=== PATIENT | male | born 1980 | race Caucasian/White ===

== ENCOUNTER 2022-08-17 20:50 | Emergency (ER) | payer SELFPAY ==
[2022-08-17 21:10] VITALS: BP 113/70; PULSE 86; RESP 16; TEMP 36.7; O2SAT 99; BMI 30.2
--- NOTE | 2022-08-18 00:37 | ED_ITS ---
HPI - General Adult General Chief complaint: Back Pain/Injury Stated complaint: leg spasms and pain Time Seen by Provider: 08/18/22 00:35 Source: patient Mode of arrival: ambulatory Limitations: no limitations History of Present Illness HPI narrative: Patient complaining of left sided back pain for last 2 weeks no known direct trauma been lifting and putting the stuff at work. History of kidney stone but no procedure done in the past PE no urinary complaints no fever no chills Related Data Previous Rx's Medication Instructions Recorded cefuroxime axetil 250 mg tablet 250 mg PO BID 7 days #14 tabs 08/18/22 ibuprofen 600 mg tablet 600 mg PO Q6H PRN fever or pain 08/18/22 #30 tabs Allergies Allergy/AdvReac Type Severity Reaction Status Date / Time No Known Allergies Allergy Verified 08/17/22 21:17 Review of Systems Review of Systems: Yes all other systems are reviewed and are negative [facility] Social History Social History Advance Directives: No Physical Exam ED Vital Signs: Vital Signs - 24 hr 08/17/22 21:10 08/18/22 01:14 08/18/22 02:00 Temperature 98.1 F 97.6 F 97.5 F Pulse Rate 86 65 69 Respiratory Rate 16 16 18 Blood Pressure 113/70 111/61 121/73 Pulse Oximetry 99 97 97 Oxygen Delivery Method Room Air Room Air Room Air BMI result Body Mass Index 30.2 Appearance: Alert. Oriented X3. No acute distress. ENT: Pharynx normal. Oral Mucosa moist Neck: Normal inspection. Neck supple. CVS: Normal heart rate and rhythm. Pulses normal. Respiratory: No respiratory distress. Equal air entry bilateral, no wheezing/rales/rhonchi Abdomen: Soft and nontender. Bowel sounds are present, no mass palpable,no CVA tenderness Back: Diffuse pain left flank and left paraspinal area no midline tenderness Skin: Skin warm and dry. Normal skin color. Normal skin turgor. Extremities: No lower extremity edema. No calf tenderness Neuro: Oriented X 3. No motor deficit. Medications Administered Discontinued Medications Generic Name Dose Route Start Last Admin Trade Name Freq PRN Reason Stop Dose Admin Cefuroxime Axetil 250 mg 08/18/22 01:54 08/18/22 02:06 Cefuroxime Axetil 250 Mg Tablet PO 08/18/22 01:55 250 mg ONCE ONE Administration Tramadol HCl 50 mg 08/18/22 01:03 08/18/22 01:09 Tramadol Hcl 50 Mg Tablet PO 08/18/22 01:04 50 mg ONCE ONE Administration Medical Decision Making MDM Narrative Medical decision making narrative: Patient clinically with musculoskeletal pain patient denied any urine complaints but urine showed 10-12 wbc's will give Ceftin and tramadol for pain Lab Data Lab results reviewed: Yes I reviewed the patient's lab results. Labs: Lab Results 08/18/22 Range/Units 01:10 Urine Color Yellow Urine Appearance Clear Urine pH 6.0 (5.0-9.0) Ur Specific [place] >= 1.030 H (1.005-1.025) Urine Protein Trace (Neg-Trace) mg/dL Urine Glucose (UA) Negative (Negative) mg/dL Urine Ketones Trace (Negative) mg/dL Urine Blood Negative (Negative) Urine Nitrite Negative (Negative) Ur Leukocyte Esterase Small (1+) H (Negative) Urine RBC 0-2 (0-2) /HPF Urine WBC 11-20 H (0-5) /HPF Ur Squamous Epith Cells 0-2 (0-2) /HPF Urine Bacteria None Seen (None Seen) Hyaline Casts 0-2 (0-2) /LPF Discharge Plan Discharge Clinical Impression: Strain of lumbar region, UTI (urinary tract infection) Patient Disposition: Home, Self-Care Instructions: Urinary Tract Infection in Men (ED), Back Pain (ED) Prescriptions: New cefuroxime axetil 250 mg tablet 250 mg PO BID 7 Days Qty: 14 0RF ibuprofen 600 mg tablet 600 mg PO Q6H PRN (Reason: fever or pain) Qty: 30 0RF Interventions: ED Discharge Assessment Last Done: 08/18/22 02:25 Discharge Date/Time: 08/18/22 02:26
[2022-08-18] MEDS: traMADoL HCL 50 MG TABLET PO (01:09)
[2022-08-18 01:14] VITALS: BP 111/61; PULSE 65; RESP 16; TEMP 36.4; O2SAT 97
[2022-08-18 01:17] LABS: Appearance Urine Clear; Color Urine Yellow; Glucose Urine UA Negative (Negative); Leukocyte Esterase Urine Small (1+) (Negative); Nitrite Urine Negative (Negative); Specific Gravity - Urine >= 1.030 (1.005-1.025); UMIC TRIGGER UACC YES; Urine Blood Negative (Negative); Urine Ketones Trace mg/dL (Negative); Urine Protein Trace mg/dL (Neg-Trace)
[2022-08-18 01:22] LABS: Bacteria Urine None Seen (None Seen); Hyaline Casts Urine 0-2 /LPF (0-2); RBC Urine 0-2 /HPF (0-2); Squamous Epithelial Cell Urine 0-2 /HPF (0-2); UACC Culture Trigger YES
[2022-08-18 02:00] VITALS: BP 121/73; PULSE 69; RESP 18; TEMP 36.4; O2SAT 97
== END 2022-08-18 02:26 | disposition home or self-care (01) ==
LOC: HO.ED 08-18 02:09
PROVIDERS: Emergency Provider Internal Medicine
DX: S39.012A Strain of muscle, fascia and tendon of lower back, initial encounter (principal); X50.0XXA Overexertion from strenuous movement or load, initial encounter; N39.0 Urinary tract infection, site not specified; Y93.89 Activity, other specified; Y92.511 Restaurant or cafe as the place of occurrence of the external cause; Y99.0 Civilian activity done for income or pay
CPT/HCPCS: 81001; 87086; 99283